=== PATIENT | male | born 1960 | race African-American/Black ===

== ENCOUNTER → 2017-08-22 | Day surgery (SDC) | payer OTHER ==
[~2017-08-22] MED LIST: ASPI81 PO; BRIM0.155 OP; BUDE150T PO; CEROVITE PO; CLON.2 PO; CYCL-36 PO; FEXO180T PO; FLON0.053; FLUTI220I INH; GLUCTAB PO; METO25 PO; PRAV40TA PO; PROPOFOL 200 MG/20 ML AMP IV ONE; VENTAER INH; VERA240CR PO; [UNRECOGNIZED DRUG - CODE] PO; [UNRECOGNIZED DRUG - CODE] PO
--- NOTE | 2017-08-22 15:48 | GIPROC ---
[facility] [address] [facility], [address] COLONOSCOPY PROCEDURE REPORT EXAM DATE: 08/22/2017 PATIENT NAME: Santana Alejandro MR #: [id number] BIRTHDATE: 1960 ENDOSCOPIST: Rehana Jimenez MD ORDER #: [id number] TRAINING DIRECTOR: Darwin Lopez RN STATUS: outpatient INDICATIONS: The patient is a 57 yr old male here for a colonoscopy due to high risk patient with personal history of colonic polyps PROCEDURE PERFORMED: Colonoscopy, diagnostic MEDICATIONS: None and Per Anesthesia. PREP QUALITY: The Hamilton Bowel Prep Score was Right colon 0, Mid colon 2, and Left colon 2. Total = 4. ESTIMATED BLOOD LOSS: None CONSENT: The patient understands the risks and benefits of the procedure and understands that these risks include, but are not limited to: sedation, allergic reaction, infection, perforation and/or bleeding. Alternative means of evaluation and treatment include, among others: physical exam, x-rays, and/or surgical intervention. The patient elects to proceed with this endoscopic procedure. medical equipment was checked for proper function. Hand hygiene and appropriate measures for infection prevention was taken. After the risks, benefits and alternatives of the procedure were thoroughly explained, Informed consent was verified, confirmed and timeout was successfully executed by the treatment team. A digital exam revealed external hemorrhoids The EC-[id number] ([id number] endoscope was introduced through the anus and advanced to the cecum, which was identified by both the appendix and ileocecal valve. The instrument was then slowly withdrawn as the colon was fully examined. COLON FINDINGS: The colonic mucosa appeared normal. Retroflexed views revealed internal hemorrhoids and Retroflexed views revealed medium internal hemorrhoids The scope was then completely withdrawn from the patient and the procedure terminated. PROCEDURE WITHDRAWAL TIME:6minutes ADVERSE EVENTS: There were no complications. IMPRESSIONS: 1. The colonic mucosa appeared normal 2. Retroflexed views revealed internal hemorrhoids 3. Retroflexed views revealed medium internal hemorrhoids 4. Revealed external hemorrhoids RECOMMENDATIONS: 1. Continue surveillance 2. Yearly hemoccult RECALL: Return 1 year Colonoscopy Rehana Jimenez MD eSigned: Rehana Jimenez MD 08/22/2017 3:47 PM cc: Garrett Daniels [facility] Ghotra and Yuriy White M.D. PATIENT NAME: Santana Alejandro MR#: [id number]
== END | disposition home or self-care (01) ==
LOC: ESDC 13:03
PROVIDERS: ATTEND Internal Medicine Gastroenterology
DX: Z12.11 Encounter for screening for malignant neoplasm of colon (principal); Z86.010 Personal history of colon polyps; K64.4 Residual hemorrhoidal skin tags; K64.8 Other hemorrhoids

== ENCOUNTER → 2017-12-27 | Outpatient (CLI) | payer OTHER | LOC: PHRSP 07:19 | DX: R05 Cough (principal) | CPT/HCPCS: 94060; 94729 ==